=== PATIENT | female | born 1995 | race Two or more races ===

== ENCOUNTER 2017-01-04 19:15 | Emergency (ER) | payer OTHER ==
[2017-01-04] MEDS ORDERED: Ondansetron INJ* 2 MG/ML VIAL IV ONE (21:00)
[2017-01-04] MEDS ORDERED: Morphine INJ* 4 MG/ML 1 ML SYRINGE IV ONE (21:00)
[2017-01-04] MEDS ORDERED: NS 0.9% 1000 ML* 1,000 ML IV ONE (21:00)
[2017-01-04 21:29] LABS: Hematocrit 41 % (35-47); Hemoglobin 13.3 g/dl (12.0-16.0); Mean Corpuscular HGB Conc 32 g/dl (31-36); Mean Corpuscular Hemoglobin 29 pg (27-31); Mean Corpuscular Volume 89 fL (80-97); Mean Platelet Volume 8 um3 (7.4-10.4); Red Blood Count 4.63 10^6/ul (4.0-5.4); Red Cell Distribution Width 13 % (10.5-15); White Blood Count 9.5 10^3/ul (3.5-10.8)
[2017-01-04 21:34] LABS: Urine Bilirubin Negative (Negative); Urine Glucose Negative (Negative); Urine Nitrite Negative (Negative)
[2017-01-04 21:42] LABS: ALT 6 U/L (7-52); AST 14 U/L (13-39); Albumin 4.4 g/dL (3.2-5.2); Alkaline Phosphatase 32 U/L (34-104); Anion Gap 6 mmol/L (2-11); BUN/Creatinine Ratio 25.8 (8-20); Blood Urea Nitrogen 16 mg/dL (6-24); CO2 Carbon Dioxide 25 mmol/L (22-32); Calcium 9.7 mg/dL (8.6-10.3); Chloride 105 mmol/L (101-111); EGFR African American 154.8 (>60); EGFR Non-African American 120.4 (>60); Globulin 3.4 g/dL (2-4); Glucose 101 mg/dL (70-100); Lipase 14 U/L (11.0-82.0); Potassium 4.5 mmol/L (3.5-5.0); Sodium 136 mmol/L (133-145); Total Protein 7.8 g/dL (6.4-8.9)
--- NOTE | 2017-01-04 22:19 | RAD ---
CLINICAL HISTORY: Left flank pain COMPARISON: None TECHNIQUE: Noncontrast CT examination of the abdomen and pelvis from the lung bases through the initial tuberosities. FINDINGS: VISUALIZED LUNG BASES: The visualized lung bases are grossly clear. There is no pleural effusion. ABDOMEN AND PELVIS: Evaluation of the solid organs and vasculature is limited without intravenous contrast. The liver, spleen, pancreas and adrenal glands are grossly normal in appearance. The gallbladder is normal. The kidneys are normal in appearance without focal mass, calcification or signs of hydronephrosis. The small and large bowel are not distended. The appendix is likely identified in the right lower quadrant with air in the lumen measuring 6 mm in diameter (coronal image 28). There is no gross retroperitoneal or mesenteric lymphadenopathy. In the left hemipelvis there is a 4.2 cm fluid density structure that is most consistent with a large ovarian follicle in a woman of this age. The abdominal aorta and iliac arteries are normal in course and diameter. There are no sinister bone lesions. IMPRESSION: 1. No renal calculi or hydroureter nephrosis identified bilaterally. 2. In the left hemipelvis there is a 4 cm fluid density structure most consistent with a large ovarian follicle in a woman of this age. If it will influence clinical management superior characterization can be made with pelvic ultrasound.
[2017-01-05] MEDS ORDERED: Ketorolac INJ* 30 MG/ML 1 ML VIAL IV PUSH ONE (00:13)
--- NOTE | 2017-01-05 00:37 | ED ---
Rosalia Irby Anna, scribed for Farooq Rodriguez on 01/04/17 at 2107 . Abdominal Pain/Female - HPI Summary HPI Summary: Patient is a 21 y/o female coming to [facility] presenting with the onset of waxing and waning lower left abd pain that began this morning. The pain began after urination and is exacerbated after voiding. She describes the severity of the pain as 7/10 at peak, 5/10 currently. The pain was somewhat alleviated by the use of Advil, but the pain returned. Denies hematuria, nausea, diarrhea, constipation, emesis, fever, vaginal bleeding, vaginal discharge, or Hx kidney stones. - History of Current Complaint Chief Complaint: EDUrogenitalProblems Stated Complaint: ABD PAIN Time Seen by Provider: 01/04/17 20:48 Hx Obtained From: Patient ?: No Onset/Duration: Lasting Hours, Still Present Timing: Hours Severity Initially: Moderate Severity Currently: Moderate Pain Intensity: 5 Pain Scale Used: 0-10 Numeric Location: Discrete At: LLQ Radiates: No Aggravating Factor(s): Other: - voiding Alleviating Factor(s): OTC Analgesics Associated Signs and Symptoms: Negative: Fever, Vaginal Discharge, Nausea, Vomiting, Diarrhea Allergies/Adverse Reactions: Allergies Allergy/AdvReac Type Severity Reaction Status Date / Time No Known Allergies Allergy Verified 01/04/17 21:22 PMH/Surg Hx/FS Hx/Imm Hx Cardiovascular History: Denies: Hx Cardiac Arrest EENT History: Denies: Hx Deafness Infectious Disease History: No Infectious Disease History: Reports: Traveled Outside the [place] in Last 30 Days - Family History Known Family History: Negative: Cardiac Disease, Hypertension, Diabetes - Social History Occupation: Student Lives: With Family Alcohol Use: None Substance Use Type: Reports: None Smoking Status (MU): Former Smoker Review of Systems Negative: Fever Positive: Abdominal Pain. Negative: Vomiting, Diarrhea, Nausea Negative: discharge, hematuria All Other Systems Reviewed And Are Negative: Yes Physical Exam Triage Information Reviewed: Yes Vital Signs On Initial Exam: Initial Vitals Temp Pulse Resp BP Pulse Ox 98.7 F 89 18 145/79 100 01/04/17 19:38 01/04/17 19:38 01/04/17 19:38 01/04/17 19:38 01/04/17 19:38 Vital Signs Reviewed: Yes Appearance: Positive: Well-Appearing, No Pain Distress Skin: Positive: Warm, Skin Color Reflects Adequate Perfusion, Dry Head/Face: Positive: Normal Head/Face Inspection Eyes: Positive: EOMI, TEENA ENT: Positive: Normal ENT inspection Neck: Positive: Supple, Nontender Respiratory/Lung Sounds: Positive: Clear to Auscultation, Breath Sounds Present Cardiovascular: Positive: RRR, Pulses are Symmetrical in both Upper and Lower Extremities Abdomen Description: Positive: Soft, Other: - LLQ tenderness Bowel Sounds: Positive: Present Musculoskeletal: Positive: Normal, Strength/ROM Intact Neurological: Positive: Normal, Sensory/Motor Intact, Alert, Oriented to Person Place, Time - Jovita Coma Scale Coma Scale Total: 15 Diagnostics - Vital Signs Vital Signs Temp Pulse Resp BP Pulse Ox 01/04/17 20:53 98.7 F 89 18 145/79 100 01/04/17 19:38 98.7 F 89 18 145/79 100 - Laboratory Lab Results: Lab Results 01/04/17 01/04/17 01/04/17 Range/Units 21:18 21:18 21:18 WBC 9.5 (3.5-10.8) 10^3/ul RBC 4.63 (4.0-5.4) 10^6/ul Hgb 13.3 (12.0-16.0) g/dl Hct 41 (35-47) % MCV 89 (80-97) fL MCH 29 (27-31) pg MCHC 32 (31-36) g/dl RDW 13 (10.5-15) % Plt Count 295 (150-450) 10^3/ul MPV 8 (7.4-10.4) um3 Neut % (Auto) 49.1 (38-83) % Lymph % (Auto) 30.8 (25-47) % [place] % (Auto) 8.0 (1-9) % Eos % (Auto) 11.3 H (0-6) % Baso % (Auto) 0.8 (0-2) % Absolute Neuts (auto) 4.7 (1.5-7.7) 10^3/ul Absolute Lymphs (auto) 2.9 (1.0-4.8) 10^3/ul Absolute Monos (auto) 0.8 (0-0.8) 10^3/ul Absolute Eos (auto) 1.1 H (0-0.6) 10^3/ul Absolute Basos (auto) 0.1 (0-0.2) 10^3/ul Absolute Nucleated RBC 0.01 10^3/ul Nucleated RBC % 0.1 INR (Anticoag Therapy) (0.89-1.11) APTT (26.0-36.3) seconds Sodium 136 (133-145) mmol/L Potassium 4.5 (3.5-5.0) mmol/L Chloride 105 (101-111) mmol/L Carbon Dioxide 25 (22-32) mmol/L Anion Gap 6 (2-11) mmol/L BUN 16 (6-24) mg/dL Creatinine 0.62 (0.51-0.95) mg/dL Est GFR ( Amer) 154.8 (>60) Est GFR (Non-Af Amer) 120.4 (>60) BUN/Creatinine Ratio 25.8 H (8-20) Glucose 101 H (70-100) mg/dL Calcium 9.7 (8.6-10.3) mg/dL Total Bilirubin 0.30 (0.2-1.0) mg/dL AST 14 (13-39) U/L ALT 6 L (7-52) U/L Alkaline Phosphatase 32 L (34-104) U/L Total Protein 7.8 (6.4-8.9) g/dL Albumin 4.4 (3.2-5.2) g/dL Globulin 3.4 (2-4) g/dL Albumin/Globulin Ratio 1.3 (1-3) Lipase 14 (11.0-82.0) U/L Beta HCG, Quant < 0.60 mIU/mL Urine Color Yellow Urine Appearance Clear Urine pH 5.0 (5-9) Ur Specific [place] 1.030 (1.010-1.030) Urine Protein Negative (Negative) Urine Ketones Negative (Negative) Urine Blood Negative (Negative) Urine Nitrate Negative (Negative) Urine Bilirubin Negative (Negative) Urine Urobilinogen Negative (Negative) Ur Leukocyte Esterase Negative (Negative) Urine Glucose Negative (Negative) 01/04/17 Range/Units 21:18 WBC (3.5-10.8) 10^3/ul RBC (4.0-5.4) 10^6/ul Hgb (12.0-16.0) g/dl Hct (35-47) % MCV (80-97) fL MCH (27-31) pg MCHC (31-36) g/dl RDW (10.5-15) % Plt Count (150-450) 10^3/ul MPV (7.4-10.4) um3 Neut % (Auto) (38-83) % Lymph % (Auto) (25-47) % [place] % (Auto) (1-9) % Eos % (Auto) (0-6) % Baso % (Auto) (0-2) % Absolute Neuts (auto) (1.5-7.7) 10^3/ul Absolute Lymphs (auto) (1.0-4.8) 10^3/ul Absolute Monos (auto) (0-0.8) 10^3/ul Absolute Eos (auto) (0-0.6) 10^3/ul Absolute Basos (auto) (0-0.2) 10^3/ul Absolute Nucleated RBC 10^3/ul Nucleated RBC % INR (Anticoag Therapy) 0.81 L (0.89-1.11) APTT 38.7 H (26.0-36.3) seconds Sodium (133-145) mmol/L Potassium (3.5-5.0) mmol/L Chloride (101-111) mmol/L Carbon Dioxide (22-32) mmol/L Anion Gap (2-11) mmol/L BUN (6-24) mg/dL Creatinine (0.51-0.95) mg/dL Est GFR ( Amer) (>60) Est GFR (Non-Af Amer) (>60) BUN/Creatinine Ratio (8-20) Glucose (70-100) mg/dL Calcium (8.6-10.3) mg/dL Total Bilirubin (0.2-1.0) mg/dL AST (13-39) U/L ALT (7-52) U/L Alkaline Phosphatase (34-104) U/L Total Protein (6.4-8.9) g/dL Albumin (3.2-5.2) g/dL Globulin (2-4) g/dL Albumin/Globulin Ratio (1-3) Lipase (11.0-82.0) U/L Beta HCG, Quant mIU/mL Urine Color Urine Appearance Urine pH (5-9) Ur Specific [place] (1.010-1.030) Urine Protein (Negative) Urine Ketones (Negative) Urine Blood (Negative) Urine Nitrate (Negative) Urine Bilirubin (Negative) Urine Urobilinogen (Negative) Ur Leukocyte Esterase (Negative) Urine Glucose (Negative) Result Diagrams: 01/04/17 21:18 01/04/17 21:18 Lab Statement: Any lab studies that have been ordered have been reviewed, and results considered in the medical decision making process. - CT CT abd/pel CT Interpretation: Positive (See Comments) CT Interpretation Completed By: Radiologist - IMPRESSION: 1. No renal calculi or hydroureter nephrosis identified bilaterally. 2. In the left hemipelvis there is a 4 cm fluid density structure most consistent with a large ovarian follicle in a woman of this age. If it will influence clinical management superior characterization can be made with pelvic ultrasound. - Ultrasound No standard instances Ultrasound Interpretation: Positive (See Comments) Ultrasound Interpretation Completed By: Radiologist - IMPRESSION: 5.1 cm complex left ovarian cyst could be hemorrhagic in nature, possibly an endometrioma, but demonstrates normal flow. nonvisualization of the right ovary. Recommend six-week followup US to ensure cyst resolution. Abdominal Pain Fem Course/Dx - Course Course Of Treatment: Patient is a 21 y/o female coming to [facility] presenting with the onset of waxing and waning lower left abd pain that began this morning. CT abd/pel reveals a 4 cm fluid density structure consistent with a large ovarian follicle. UA is WNL and negative for blood or proteins. Labs reveal Bun/ Creatinine ratio of 25.8, ALT of 6. US reveals an ovarian cyst. Pt will be discharged with pain medication and follow up with chiropractor sole practitioner at [facility]. - Diagnoses Differential Diagnosis: Positive: Bowel Obstruction, Diverticulitis, Ectopic , Ovarian Cyst, Renal Colic Provider Diagnoses: Ovarian cyst Discharge - Discharge Plan Condition: Stable Disposition: HOME Patient Education Materials: Ovarian Cyst (ED) [facility] - Additional Instructions: Follow up with OBGYN within 72 hours. Return to the Emergency Department for new or worsening symptoms. The documentation as recorded by the Rosalia saxena Anna accurately reflects the service I personally performed and the decisions made by , Farooq Rodriguez.
[2017-01-05 00:51] VITALS: BP 110/66
--- NOTE | 2017-01-05 10:55 | RAD ---
INDICATION: Left abdominal pain COMPARISON: Same day CT of the abdomen and pelvis demonstrating a large low-density structure in the left hemipelvis TECHNIQUE: Real-time transabdominal and transvaginal ultrasound examination of the female pelvis including grayscale and Doppler color flow imaging. FINDINGS: Uterus: The uterus is normal in size and echogenicity measuring 9.2 x 3.2 x 4.4 cm. The endometrial stripe is smooth and uniform measuring 13 mm in thickness. Ovaries: The right ovary is not discretely visualized. The left ovary measures 6.2 x 4.5 x 4.4 cm. Normal arterial and venous waveforms are recorded overlying the left ovary. Within the left ovary there is a mostly hypoechoic and avascular structure with linear echogenicities that measures 5.1 x 4.5 x 4.4 cm. There is no free fluid in the cul-de-sac. IMPRESSION: 1. Within the left ovary there is a 5 cm avascular hypoechoic structure which could represent a hemorrhagic/involuting follicle versus an endometrioma. Follow-up ultrasound can be acquired in 6 weeks to ascertain resolution. 2. The right ovary was not discretely visualized on this transabdominal only sonogram.
== END 2017-01-05 00:50 | disposition home or self-care (01) ==
LOC: ED 19:15
DX: N83.202 Unspecified ovarian cyst, left side (principal); R10.32 Left lower quadrant pain; Z87.891 Personal history of nicotine dependence
CPT/HCPCS: 36415; 74176; 76856; 80053; 81003; 83690; 84702; 85025; 85610; 85730; 96374; 96375; 99283; J1885

== ENCOUNTER 2017-11-25 21:19 | Emergency (ER) | payer OTHER ==
--- NOTE | 2017-11-25 21:57 | RAD ---
INDICATION: Left-sided chest pain COMPARISON: None TECHNIQUE: PA and lateral views of the chest were obtained. FINDINGS: The heart and mediastinum are normal in size and contour. The lungs are grossly clear. There is no evidence of large pleural effusion. Visualized bones are normal for the patient's age. There is no radiographic evidence of free air beneath the diaphragm IMPRESSION: No radiographic evidence of acute cardiopulmonary disease.
[2017-11-25 22:04] LABS: ABS Basophils 0 10^3/ul (0-0.2); ABS Eosinophils 0.2 10^3/ul (0-0.6); ABS Lymphocytes 1.5 10^3/ul (1.0-4.8); ABS Neutrophils 6.5 10^3/ul (1.5-7.7); ABS Nucleated RBC 0 10^3/ul; Eosinophil % 1.8 % (0-6); Hematocrit 38 % (35-47); Hemoglobin 12.8 g/dl (12.0-16.0); Lymphocyte % 16.7 % (25-47); Mean Corpuscular HGB Conc 34 g/dl (31-36); Mean Corpuscular Hemoglobin 30 pg (27-31); Mean Corpuscular Volume 88 fL (80-97); Mean Platelet Volume 7.2 um3 (7.4-10.4); Nucleated Red Blood Cells % 0; Platelet Count 247 10^3/ul (150-450); Red Blood Count 4.34 10^6/ul (4.0-5.4); Red Cell Distribution Width 13 % (10.5-15); White Blood Count 9.2 10^3/ul (3.5-10.8)
[2017-11-25] MEDS ORDERED: Ketorolac INJ* 60 MG/2 ML VIAL IM ONE (22:12)
[2017-11-25 22:18] LABS: EGFR Non-African American 109.1 (>60)
--- NOTE | 2017-11-26 00:14 | ED ---
Complex/Multi-Sys Presentation - HPI Summary HPI Summary: 21 female presents ED with complaints of left chest wall pain just under her left breast. Patient states the pain started around 6 PM while at work. States it was intense sharp at times dull others. Denies any shortness of breath or trouble breathing. States pain was worse with palpation, deep breaths , changing positions or movement. Never had pain like this before. No cardiac history. No past medical history. States she's been having a cold over the past few days however today felt better. Was having chills, body aches, headache however has all since improved. Denies any significant extreme cough. Denies sore throat. Admits to feeling feverish. No nausea or vomiting. No trauma or injury. Has not tried any medication. Does left heavy boxes while at work as she works at a [employer], Which is when her symptoms began. Denies any long distance or recent travel. Occasionally smokes cigarettes recreationally. Is not on oral contraceptives. Has never had history of blood clots. No recent surgery. Pain does not radiate. Pain is something sharp at its worst at other times of a dull ache. - History Of Current Complaint Chief Complaint: EDChestWallPain Time Seen by Provider: 11/25/17 22:13 Hx Obtained From: Patient Onset/Duration: Sudden Onset, Lasting Hours, Still Present Timing: Constant Severity Currently: Mild Severity Initially: Moderate Location: Pain At: - Underlapped breast Character: Sharp, Dull Aggravating Factor(s): Movement, deep breaths, palpation, changing positions, laughing, coughing Alleviating Factor(s): Rest Associated Signs And Symptoms: Positive: Chest Pain - Wall. Negative: SOB, Palpitations, Edema, Nausea, Vomiting, Recent Trauma - Allergies/Home Medications Allergies/Adverse Reactions: Allergies Allergy/AdvReac Type Severity Reaction Status Date / Time No Known Allergies Allergy Verified 11/25/17 21:30 PMH/Surg Hx/FS Hx/Imm Hx Cardiovascular History: Denies: Hx Cardiac Arrest Sensory History: Denies: Hx Deafness Infectious Disease History: No Infectious Disease History: Denies: Traveled Outside the [place] in Last 30 Days - Family History Known Family History: Negative: Cardiac Disease, Hypertension, Diabetes - Social History Alcohol Use: None Substance Use Type: Reports: None Smoking Status (MU): Light Every Day Tobacco Smoker - only occasionally Type: Cigarettes Review of Systems Constitutional: Negative Positive: Chest Pain - chest wall Respiratory: Negative Gastrointestinal: Negative Positive: Arthralgia, Myalgia - chest wall Skin: Negative Neurological: Negative All Other Systems Reviewed And Are Negative: Yes Physical Exam Triage Information Reviewed: Yes Vital Signs On Initial Exam: Initial Vitals Temp Pulse Resp BP Pulse Ox 101.1 F 95 16 121/67 100 11/25/17 21:27 11/25/17 21:27 11/25/17 21:27 11/25/17 21:27 11/25/17 21:27 temp improved to 97.F Vital Signs Reviewed: Yes Appearance: Positive: Well-Appearing, Well-Nourished, Pain Distress - Mild to moderate with palpation or movement Skin: Positive: Warm - left chest wall, Skin Color Reflects Adequate Perfusion , Dry. Negative: Cold, Numb, Cyanosis @, Pale, Erythema @ Head/Face: Positive: Normal Head/Face Inspection Eyes: Positive: Conjunctiva Clear Neck: Positive: Supple Respiratory/Lung Sounds: Positive: Clear to Auscultation, Breath Sounds Present. Negative: Decreased Breath Sounds, Rales, Rhonchi, Wheezes Cardiovascular: Positive: Normal, RRR, Pulses are Symmetrical in both Upper and Lower Extremities, Other - Anterior left Chest wall pain reproducible. Negative : Murmur, Rub Abdomen Description: Positive: Nontender, No Organomegaly, Soft. Negative: CVA Tenderness (R), CVA Tenderness (L), Distended, Guarding, McBurney's Point Tenderness, Peritoneal Signs, Splenomegaly Bowel Sounds: Positive: Present Musculoskeletal: Positive: Normal, Strength/ROM Intact, Pain @ - With changing positions, palpation of left anterior chest wall area of rib 5-8 area, Other - No crepitus step-off or obvious deformity. No ecchymosis erythema or edema. Negative: Limited @, Interruption @, Abnormal @ Neurological: Positive: Normal, Sensory/Motor Intact, Alert, Oriented to Person Place, Time Diagnostics - Vital Signs Vital Signs Temp Pulse Resp BP Pulse Ox 11/25/17 21:27 101.1 F 95 16 121/67 100 - Laboratory Lab Results: Lab Results 11/25/17 11/25/17 11/25/17 Range/Units 21:48 21:48 21:48 WBC 9.2 (3.5-10.8) 10^3/ul RBC 4.34 (4.0-5.4) 10^6/ul Hgb 12.8 (12.0-16.0) g/dl Hct 38 (35-47) % MCV 88 (80-97) fL MCH 30 (27-31) pg MCHC 34 (31-36) g/dl RDW 13 (10.5-15) % Plt Count 247 (150-450) 10^3/ul MPV 7.2 L (7.4-10.4) um3 Neut % (Auto) 70.4 (38-83) % Lymph % (Auto) 16.7 L (25-47) % [place] % (Auto) 10.9 H (0-7) % Eos % (Auto) 1.8 (0-6) % Baso % (Auto) 0.2 (0-2) % Absolute Neuts (auto) 6.5 (1.5-7.7) 10^3/ul Absolute Lymphs (auto) 1.5 (1.0-4.8) 10^3/ul Absolute Monos (auto) 1.0 H (0-0.8) 10^3/ul Absolute Eos (auto) 0.2 (0-0.6) 10^3/ul Absolute Basos (auto) 0 (0-0.2) 10^3/ul Absolute Nucleated RBC 0 10^3/ul Nucleated RBC % 0 D-Dimer, Quantitative < 200 (Less Than 230) ng/mL Sodium 135 L (139-145) mmol/L Potassium 3.6 (3.5-5.0) mmol/L Chloride 101 (101-111) mmol/L Carbon Dioxide 24 (22-32) mmol/L Anion Gap 10 (2-11) mmol/L BUN 10 (6-24) mg/dL Creatinine 0.67 (0.51-0.95) mg/dL Est GFR ( Amer) 140.3 (>60) Est GFR (Non-Af Amer) 109.1 (>60) BUN/Creatinine Ratio 14.9 (8-20) Glucose 126 H (70-100) mg/dL Calcium 9.6 (8.6-10.3) mg/dL Troponin I 0.01 (<0.04) ng/mL Monoscreen Negative (Negative) Result Diagrams: 11/25/17 21:48 11/25/17 21:48 Lab Statement: Any lab studies that have been ordered have been reviewed, and results considered in the medical decision making process. - CT chest x-ray CT Interpretation: No Acute Changes - No radiographic evidence of acute cardiopulmonary disease. CT Interpretation Completed By: Radiologist - EKG EKG Cardiac Rate: NL EKG Rhythm: Sinus Rhythm ST Segment: Normal Ectopy: None EKG Interpretation: normal sinus rhythm no STEMI no diffuse ST elevations EKG Comparison: No Significant Change Re-Evaluation - Re-Evaluation First Eval Re-Evaluation Time: 00:00 Change: Improved - Feeling better after Toradol, updated all imaging and lab results. All questions were answered. Patient understands plan and agrees. Complex Multi-Symp Course/Dx Course Of Treatment: Labs obtained and unremarkable. Negative troponin. Monospot obtained due to cold-like symptoms possible fever and left upper quadrant pain. Was negative. Normal vital signs temperature on recheck was 97 F. Chest x-ray obtained and negative for any acute disease. EKG obtained in normal sinus rhythm without any concerning findings. Negative d-dimer. Without any risk factors. Patient appears to be suffering from costochondritis possibly due to lifting at her job in recent illness. Due to physical exam findings confident in diagnosis of costochondritis. No other concerning etiologies at this time. Does not appear to be cardiorespiratory at this time. Patient is aware worsening signs and symptoms to watch out for. Did have relief after Toradol. Continue prescribed naproxen at home with food along with a muscle relaxer. Follow-up with PCP in 2-3 days. Return if any new signs or symptoms. Also recommended heating pad and refrain from physical activity, heavy lifting. Patient agrees and understands plan. All questions were answered - Diagnoses Differential Diagnoses/HQI/PQRI: Other - costochondritis, chest wall pain, chest pain, viral illness Provider Diagnoses: Chest wall pain, Costochondritis, acute Discharge - Sign-Out/Discharge Documenting (check all that apply): Discharge - Discharge Plan Condition: Improved Disposition: HOME Prescriptions: Cyclobenzaprine TAB* [Flexeril 10 MG TAB*] 5 mg PO BEDTIME PRN #10 tab PRN Reason: Spasms Naproxen TAB* [Naprosyn 375 mg TAB*] 375 mg PO Q8H PRN #30 tab PRN Reason: Pain Patient Education Materials: Costochondritis (ED), Chest Wall Pain (ED) Referrals: [facility] - Donald GILBERT [Primary Care Provider] - 11/28/17 Additional Instructions: Take prescribed medication as directed to help with pain and inflammation. Take Flexeril for muscle relaxation at that time. Apply warm compresses to area of pain. Avoid heavy lifting and physical activity until symptoms improve. Follow-up with PCP to ensure improvement within the next 3-4 days. Any new or worsening symptoms as we discussed please return to ED promptly. Increase fluid intake and take it easy the next couple days.with the - Billing Disposition and Condition Condition: IMPROVED Disposition: HOME
[2017-11-26 00:51] VITALS: BP 97/57
== END 2017-11-26 00:49 | disposition home or self-care (01) ==
LOC: ED 21:19
DX: R07.89 Other chest pain (principal); M94.0 Chondrocostal junction syndrome [Tietze]; F17.210 Nicotine dependence, cigarettes, uncomplicated
CPT/HCPCS: 36415; 71046; 80048; 84484; 85025; 85379; 86308; 93005; 96372; 99283; J1885